=== PATIENT | female | born 1955 | race Caucasian/White ===

== ENCOUNTER 2018-01-17 12:37 | Emergency (ER) | payer OTHER ==
[~2018-01-17] VITALS: Ht 167.6 cm; Wt 61.8 kg
[2018-01-17 13:00] VITALS: BP 115/59
[2018-01-17] MEDS ORDERED: IBUPROFEN 800 MG TAB PO ONE (15:00)
== END 2018-01-17 15:18 | disposition home or self-care (01) ==
LOC: ER 12:37
DX: S42.251A Displaced fracture of greater tuberosity of right humerus, initial encounter for closed fracture (principal); Z88.2 Allergy status to sulfonamides; W19.XXXA Unspecified fall, initial encounter; Y93.89 Activity, other specified; Y99.8 Other external cause status; Y92.89 Other specified places as the place of occurrence of the external cause
CPT/HCPCS: 70450; 73030